=== PATIENT | male | born 1980 | race Caucasian/White ===

== ENCOUNTER 2017-11-30 12:41 | Emergency (ER) | payer SELFPAY ==
[~2017-11-30] VITALS: Ht 172.7 cm; Wt 74.0 kg
[2017-11-30] MEDS ORDERED: SODIUM CHLORIDE 0.9% 1,000 ML IV ONE (14:04)
[2017-11-30 14:40] LABS: BASOPHILS % 0.2 % (0.0-2.0); EOSINOPHILS % 1.4 % (0.0-5.0); HEMATOCRIT. 46.1 % (36.0-48.0); HEMOGLOBIN. 15.2 g/dL (12.0-16.0); LYMPHOCYTES % 16.7 % (20.0-50.0); MEAN CORPUSCULAR HEMOGLOBIN 29.7 pg (28.0-32.0); MEAN CORPUSCULAR VOLUME 89.9 fL (81.0-99.0); MEAN PLATELET VOLUME 7.2 fl (7.4-10.4); MONOCYTES % 7.6 % (2.0-8.0); NEUTROPHILS % 74.1 % (40.0-76.0); PLATELET 343 x1000/uL (130-400); RED BLOOD CELL COUNT 5.13 mill/uL (4.2-5.4)
[2017-11-30 14:45] LABS: PROTHROMBIN TIME 10.3 sec (9.4-11.6)
[2017-11-30 14:46] LABS: CHLORIDE 108 mEq/L (98-107)
[2017-11-30 14:55] LABS: CARBON DIOXIDE 29 mEq/L (21-32); ETHANOL BLOOD < 10 mg/dL
[2017-11-30 16:05] VITALS: BP 115/68
== END 2017-11-30 16:20 | disposition home or self-care (01) ==
LOC: EDSEX 12:52 → ER 12:52
DX: R55 Syncope and collapse (principal); R53.1 Weakness; F17.200 Nicotine dependence, unspecified, uncomplicated; F11.10 Opioid abuse, uncomplicated
CPT/HCPCS: 36415; 80053; 85025; 85610; 93005; 99285; G0482; J7030